=== PATIENT | female | born 1960 | race Caucasian/White ===

== ENCOUNTER 2019-02-20 14:03 | Emergency (ER) | payer BC, OTHER ==
--- NOTE | 2019-02-20 17:54 | ED ---
Abdominal Pain/Female - HPI Summary HPI Summary: 58-year-old female presents with complaints of persistent diarrhea for over 2 months. States she is having multiple liquid stools throughout the day and at night. Reports it is got to the point where she has not been able to get out of the house without wearing a diaper or taking extra clothes with her. She has used both Imodium and Pepto-Bismol to try to manage the symptoms with little relief. Denies any association with particular food or drink or other aggravating factors. Father has history of celiac and her son has a history of Crohn's disease. She has an appointment scheduled with Dr. Berry on February 26 to evaluate her for the diarrhea. Denies fever, chills, dizziness, lightheadedness, abdominal pain, nausea, vomiting, blood in stool, or melena. - History of Current Complaint Chief Complaint: EDGeneral Stated Complaint: ABD PAIN AND DIARRHEA Time Seen by Provider: 02/20/19 17:44 Hx Obtained From: Patient Pain Intensity: 2 Allergies/Adverse Reactions: Allergies Allergy/AdvReac Type Severity Reaction Status Date / Time clarithromycin [From Biaxin] Allergy Unknown Verified 02/20/19 14:11 Reaction Details procaine [From Novocain] Allergy Unknown Verified 02/20/19 14:11 Reaction Details Home Medications: Home Medications Cannabidiol (Cbd) Extract [Epidiolex] 2.8 ml PO BID 02/20/19 [History Confirmed 02/20/19] Levothyroxine Sodium 75 mcg PO QAM 02/20/19 [History Confirmed 02/20/19] Metformin HCl 500 mg PO BID 02/20/19 [History Confirmed 02/20/19] cloBAZam [Clobazam] 30 mg PO BID 02/20/19 [History Confirmed 02/20/19] PMH/Surg Hx/FS Hx/Imm Hx Endocrine/Hematology History: Reports: Hx Diabetes - Pre-diabetes, Hx Thyroid Disease GI History: Reports: Other GI Disorders - Fatty liver Neurological History: Reports: Hx Seizures - temporal lobe epilepsy, Other Neuro Impairments/Disorders - autoimmune limbic encephalitis - Surgical History Surgical History: Yes Surgery Procedure, Year, and Place: tonsilectomy, wisdom teeth, total hysterectomy (age 42) Infectious Disease History: No Infectious Disease History: Denies: Traveled Outside the [place] in Last 30 Days - Family History Family History: Mother - thyroid disease. Father - Celiac. Son - Crohn's disease. Brother - Crohn's disease - Social History Occupation: Employed Full-time Lives: With Family Alcohol Use: Occasionally Substance Use Type: Reports: None Smoking Status (MU): Never Smoked Tobacco Review of Systems Negative: Fever, Chills Negative: Shortness Of Breath Positive: Diarrhea. Negative: Abdominal Pain, Vomiting, Nausea Genitourinary: Negative Musculoskeletal: Negative Skin: Negative Neurological: Negative All Other Systems Reviewed And Are Negative: Yes Physical Exam - Summary Physical Exam Summary: GENERAL APPEARANCE: Well developed, well nourished, alert and cooperative, and appears to be in no acute distress. THROAT: Pharynx normal. No tonsilar inflammation, swelling, exudate, or lesions. Uvula midline. Oral cavity normal. Teeth and gingiva in good general condition. NECK: Neck supple, non-tender without lymphadenopathy. CARDIAC: Normal S1 and S2. No S3, S4 or murmurs. Rhythm is regular. There is no peripheral edema, cyanosis or pallor. Extremities are warm and well perfused. Capillary refill is less than 2 seconds. Peripheral pulses intact. LUNGS: Clear to auscultation without rales, rhonchi, wheezing or diminished breath sounds. ABDOMEN: Positive bowel sounds. Soft, nondistended, nontender. No guarding or rebound. No masses or hepatosplenomegally. MUSKULOSKELETAL: ROM intact to all extremities. No joint erythema or tenderness. Normal muscular development. Normal gait. SKIN: Skin normal color, texture and turgor with no lesions or eruptions. Triage Information Reviewed: Yes Vital Signs On Initial Exam: Initial Vitals Temp Pulse Resp BP Pulse Ox 97.9 F 73 17 119/82 96 02/20/19 14:06 02/20/19 14:06 02/20/19 14:06 02/20/19 14:06 02/20/19 14:06 Vital Signs Reviewed: Yes Diagnostics - Vital Signs Vital Signs Temp Pulse Resp BP Pulse Ox 02/20/19 15:43 97.7 F 67 16 137/73 98 02/20/19 14:06 97.9 F 73 17 119/82 96 - Laboratory Result Diagrams: 02/20/19 18:49 02/20/19 18:49 Lab Statement: Any lab studies that have been ordered have been reviewed, and results considered in the medical decision making process. Abdominal Pain Fem Course/Dx - Course Course Of Treatment: 58-year-old female presents with complaints of persistent diarrhea for over 2 months. States she is having multiple liquid stools throughout the day and at night. Reports it is got to the point where she has not been able to get out of the house without wearing a diaper or taking extra clothes with her. She has used both Imodium and Pepto-Bismol to try to manage the symptoms with little relief. Denies any association with particular food or drink or other aggravating factors. Father has history of celiac and her son has a history of Crohn's disease. She has an appointment scheduled with Dr. Berry on February 26 to evaluate her for the diarrhea. Denies fever, chills, dizziness, lightheadedness, abdominal pain, nausea, vomiting, blood in stool, or melena. Afebrile. Vital signs stable. Her overall exam was unremarkable. CBC normal, electrolytes normal, AST/ALTs were mildly elevated at 42 and 74 however this has been her baseline based on my review of her labs that she hasn't done at [facility]. She also had a normal CRP and TSH. Her stool occult blood was negative and C. difficile were negative. I reviewed these results with the patient. We discussed that she has several tests still pending including her stool culture, ova and parasite, the shiga toxin, and her celiac panel which she can review with Dr. Berry, gastroenterology on 2018. Patient stated that her [id number] had recommended that she may try Bentyl to help with the diarrhea and I have agreed to provide her with a short course of this until she is able to follow-up with gastroenterology. Anticipatory guidance and warning symptoms are reviewed with the patient. She verbalizes understanding and agrees with plan of care. - Diagnoses Differential Diagnosis: Positive: Gall Bladder Disease, Irritable Bowel Syndrome , Other - Malabsorption synderome, celiac Provider Diagnoses: Chronic diarrhea Discharge - Sign-Out/Discharge Documenting (check all that apply): Patient Departure Patient Received Moderate/Deep Sedation with Procedure: No - Discharge Plan Condition: Stable Disposition: HOME Prescriptions: Dicyclomine HCl 20 mg PO Q6HR PRN #28 tablet PRN Reason: Diarrhea Patient Education Materials: Chronic Diarrhea (ED) Referrals: Geovani YANEZ,Sukhjinder Cook [Primary Care Provider] - Robyn Berry MD [Medical Doctor] - (As scheduled on 02/26/2019) Additional Instructions: Your lab work performed in the emergency room today was stable. The testing for celiac disease and several of the stool tests are still pending and may take a couple days before we have the results. You can review these when you follow up with gastroenterology. I have provided you with a prescription for dicyclomine (Bentyl) 20 mg every 6 hours as needed for abdominal cramping or diarrhea. Be sure to drink plenty of fluids. Avoid beverages containing caffeine or artificial sweeteners as these can worsen symptoms. Be sure to eat a well balanced diet. Boiled starches and cereals (potatoes, rice , cream of wheat, oatmeal) as well as food such as crackers, toast, bananas, soups and boiled vegetables are usually recommended if you are having watery diarrhea. Be sure to use good hand hygiene to prevent spreading infection. Follow up with Dr. Berry as scheduled on 02/26/2019. Seek immediate medical attention in the emergency room if you have fever greater than 100.5 F, have severe abdominal pain, persistent vomiting, blood in your vomit or stool, you become weak or dizzy, or have any worsening of symptoms. - Billing Disposition and Condition Condition: STABLE Disposition: Home
[2019-02-20 18:53] LABS: ABS Basophils 0.1 10^3/ul (0-0.2); ABS Eosinophils 0.7 10^3/ul (0-0.6); ABS Lymphocytes 1.5 10^3/ul (1.0-4.8); ABS Monocytes 0.7 10^3/ul (0-0.8); ABS Neutrophils 2.4 10^3/ul (1.5-7.7); Hematocrit 40 % (35-47); Hemoglobin 13.8 g/dL (12.0-16.0); Lymphocyte % 28.3 %; Mean Corpuscular HGB Conc 34 g/dL (31-36); Mean Corpuscular Hemoglobin 33 pg (27-31); Mean Corpuscular Volume 96 fL (80-97); Mean Platelet Volume 9.3 fL (7.4-10.4); Platelet Count 279 10^3/uL (150-450); Red Blood Count 4.19 10^6 /uL (3.70-4.87); Red Cell Distribution Width 13 % (10-15); White Blood Count 5.3 10^3/uL (3.5-10.8)
[2019-02-20 19:12] LABS: Albumin 4.7 g/dL (3.2-5.2); Albumin/Globulin Ratio 1.9 (1-3); BUN/Creatinine Ratio 9.5 (8-20); C Reactive Protein 3.52 mg/L (<8.01); Calcium 9.5 mg/dL (8.6-10.3); EGFR African American 84.9 (>60); EGFR Non-African American 70.1 (>60); Globulin 2.5 g/dL (2-4); Potassium 4.2 mmol/L (3.5-5.0); Total Bilirubin 0.3 mg/dL (0.2-1.0); Total Protein 7.2 g/dL (6.4-8.9)
[2019-02-20 19:48] LABS: TSH (Thyroid Stimulating Horm) 2.77 mcIU/mL (0.34-5.60)
[2019-02-20 20:23] LABS: Erythrocyte Sed Rate 5 mm/Hr (0-29)
[2019-02-20 21:14] VITALS: BP 115/72
[2019-02-24 14:39] LABS: Tissue Transglutaminase IgA Ab <1.2 U/mL
[2019-02-24 22:21] LABS: Immunoglobulin A 134 mg/dL (61 - 356)
== END 2019-02-20 20:28 | disposition home or self-care (01) ==
LOC: ED 14:03
DX: K52.9 Noninfective gastroenteritis and colitis, unspecified (principal); R73.03 Prediabetes; Z79.84 Long term (current) use of oral hypoglycemic drugs; Z79.899 Other long term (current) drug therapy
CPT/HCPCS: 36415; 80053; 82272; 82784; 83630; 84443; 85025; 85652; 86140; 87045; 87046; 87177; 87209; 87328; 87329; 87493; 87899; 99282